=== PATIENT | female | born 1990 | race Caucasian/White ===

== ENCOUNTER 2023-11-18 10:19 | Day surgery (SDC) | payer OTHER ==
[2023-11-18 10:07] LABS: Potassium 4.1 mEq/L (3.5-5.1)
[2023-11-18] MEDS ORDERED: CEFAZOLIN SODIUM 2 GM/VIAL ONE (10:32)
[2023-11-18] MEDS ORDERED: Ringers Lactate 1,000 ML IV ONE (10:33)
[2023-11-18] MEDS ORDERED: BUPIVACAINE 0.25% PF 10 ML VIAL ONE (11:16)
[2023-11-18] MEDS ORDERED: MIDAZOLAM HCL 2 MG/2 ML INJ ONE (11:27)
[2023-11-18] MEDS ORDERED: LIDOCAINE 2% MPF 5 ML VIAL ONE (11:27)
[2023-11-18] MEDS ORDERED: propofoL 200 MG/20 ML VIAL IV ONE (11:27)
[2023-11-18] MEDS ORDERED: FENTANYL CITR 100 MCG/2 ML ONE ×2 (11:27→11:55)
[2023-11-18] MEDS ORDERED: ONDANSETRON 4 MG/2 ML VIAL ONE ×2 (11:27→14:19)
[2023-11-18] MEDS ORDERED: dexAMETHasone 10 MG/ML VIAL ONE (11:45)
[2023-11-18] MEDS ORDERED: GLYCOPYRROLATE 0.2 MG/ML SYR ONE (12:03)
--- NOTE | 2023-11-18 12:17 | P.OP ---
Preoperative diagnosis: LEFT Axillary infected cyst with abscess Postoperative diagnosis: LEFT Axillary infected cyst with abscess Primary procedure: Excisional Debridement of LEFT Axillary infected cyst with abscess Anesthesia: GETA + Local Estimated blood loss: <2cc Specimen: Debridement tissue, cultures Findings: ~3cm x 2cm into adipose LEFT Axillary Cyst Complications: None Transferred to: Recovery Room Condition: Good
[2023-11-18] MEDS: HYDROMORPHONE HCL 1 MG/ML INJ ONE ×4 (12:25→13:12)
[2023-11-18] MEDS: FENTANYL CITR 100 MCG/2 ML ONE ×4 (12:35→12:50)
[2023-11-18] MEDS ORDERED: MEPERIDINE HCL 25 MG/ML SYR ONE (13:21)
[2023-11-18] MEDS ORDERED: HYDROMORPHONE HCL 1 MG/ML INJ ONE (13:33)
[2023-11-18 14:08] VITALS: BP 139/91; TEMP 97.1; O2SAT 99
--- NOTE | 2023-11-18 20:45 | OP ---
Date of Procedure: 11/18/2023 Surgeon: Selvin Fletcher MD, Preoperative Diagnosis: Left axillary infected sebaceous cyst with abscess. Postoperative Diagnosis: Left axillary infected sebaceous cyst with abscess. Procedure Performed: Excisional debridement of left axillary infected cyst with abscess. Anesthesia: General endotracheal plus local with 0.25% Marcaine. Estimated Blood Loss: 2 cc. Specimen: Debridement tissue and culture sent for aerobic and anaerobic speciation. Findings: Approximately 3 cm x 2 cm cyst in the left axilla with possible hidradenitis extending int o the adipose of left axillary region. Complication: None. Disposition: The patient transferred to recovery room in good condition. Procedure In Detail: After informed consent was obtained, the patient was brought to the operating r oom, prepped and draped in the usual sterile fashion. After adequate anesthesia was achieved, I inje cted an area of the left axilla where obvious cyst was appreciated with 0.25% Marcaine. I sharply in cised an elliptical area of skin using a 15 blade down to subcutaneous tissues. Immediately encounte red was abscess type material. It was cultured for both aerobic and anaerobic speciation. I then ci rcumferentially dissected out all abscess type material as well as sebaceous material looking cyst in the left axillary region. The area had consistent findings of possible hidradenitis. I removed thi s on my examination, irrigated the area, and packed the wound with half-inch plain packing with Vashe damp to dry and a sterile dressing placed over top. The patient tolerated the procedure without inc ident or complication, transferred to PACU in good condition. All counts were correct at the end of the case. LOREN/SINTIA Voice ID: [id number] Report ID: [id number]
--- NOTE | 2023-11-19 13:25 | EKG ---
Test Date: 2023-11-18 Test Time: 09:55:18 Manager Wound Care: DEISY MEASUREMENT RESULTS: Intervals: Rate: 54 GA: 156 QRSD: 94 QT: 414 QTc: 392 Lennon: P: 55 GA: 156 QRS: 86 T: 65 INTERPRETIVE STATEMENTS: Sinus bradycardia Otherwise normal ECG No previous ECG available for comparison Electronically Signed On 11-19-23 13:22:31 [employer] DIRECT[employer] by Nitesh Norman
== END 2023-11-18 15:48 | disposition home or self-care (01) ==
LOC: OR 10:19
PROVIDERS: ATTEND Surgery
PROC: 0JBF0ZZ Excision of Left Upper Arm Subcutaneous Tissue and Fascia, Open Approach (ICD-10-PCS; principal; 2023-11-18 12:00)
DX: L72.0 Epidermal cyst (principal); L02.412 Cutaneous abscess of left axilla; E11.9 Type 2 diabetes mellitus without complications
CPT/HCPCS: 93005; 87070; 80048; 36415; 87205 ×2; 84703; 88304; 87075; 11000; J2704; J2001; J2250; J3010 ×3; J1100; J2175; J1170 ×3; J2405 ×2; J7120